=== PATIENT | male | born 1990 ===

== ENCOUNTER 2016-08-06 19:24 | Emergency (ER) | payer SELFPAY ==
--- NOTE | 2016-08-17 01:08 | ER ---
ADMIT: 08/06/2016 RM/LOC: ER [facility] MR#: [id number] [address] [id number] LEESA COFFEY [address] [place] [address] Emergency Room Report SEX: M AGE: 26 : 1990 DATE: 08/06/2016 HISTORY OF PRESENT ILLNESS: He presents to the emergency room complaining of hemorrhoids. He had hemorrhoids in the past. He went to the bathroom today and noticed some blood in the stool. He is uncomfortable. He wants to make sure that it is not thrombosed. Upon examination, he does have a hemorrhoid, but is not thrombosed and it is reducible, so I was able to prescribe hydrocortisone acetate and prescription given to him. DIAGNOSIS: Hemorrhoid, external, not thrombosed. PLAN: The patient discharged home with a followup with [facility]. SAMEER Hanks / Sammy Soler MD / victor hugo JOB #: [id number] CC: Sammy Soler MD, Attending Physician
== END 2016-08-06 20:49 | disposition home or self-care (01) ==
LOC: ER 19:24
DX: K64.4 Residual hemorrhoidal skin tags (principal)